=== PATIENT | male | born 1985 | race Caucasian/White ===

== ENCOUNTER 2018-07-28 03:16 | Emergency (ER) | payer BC ==
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
--- NOTE | 2018-07-28 04:06 | CT ---
INDICATION: Head injury from fall TECHNIQUE: CT Head without i.v. contrast. COMPARISON: None FINDINGS: Moderate degradation of image quality noted due to patient motion artifacts. CSF space: The ventricles are normal for age. Brain: No evidence of mass, acute infarction or hemorrhage is seen. No mass-effect or midline shift is seen. The brain parenchyma is otherwise normal in appearance with preservation of the mera-white matter junction. Calvarium: Air-fluid levels are present within maxillary sinuses bilaterally. The mastoid air cells are clear. The visualized orbits are grossly unremarkable. The calvarium is unremarkable in appearance with no fractures identified. IMPRESSIONS: 1. No evidence of acute infarction, intracranial hemorrhage, or mass-effect seen. 2. Air-fluid levels are present within maxillary sinuses bilaterally. This may be due to acute sinusitis but correlation with physical examination is recommended to exclude any facial injuries. 3. Moderate degradation of image quality noted due to patient motion artifacts. This particularly degrades evaluation of the posterior cranial fossa and skullbase. Dictated by Bong Evans MD @ 07/28/2018 4:04:21 AM Please note that all CT scans at this facility use dose modulation, iterative reconstruction, and/or weight-based dosing when appropriate to reduce radiation dose to as low as reasonably achievable. Dictated by: Bong Evans MD @ 07/28/2018 04:04:32 (Electronically Signed)
== END 2018-07-28 04:44 | disposition home or self-care (01) ==
LOC: MW.ED 03:16
DX: S01.111A Laceration without foreign body of right eyelid and periocular area, initial encounter (principal); Y08.89XA Assault by other specified means, initial encounter
CPT/HCPCS: 70450; 70450-26; 99283-25